=== PATIENT | female | born 1995 | race Hispanic/Latino ===

== ENCOUNTER 2018-01-28 20:11 | Emergency (ER) | payer OTHER ==
[2018-01-28 20:12] VITALS: BMI 20.4
[2018-01-28 20:28] VITALS: O2SAT 100
[2018-01-28] MEDS ORDERED: Iohexol 240 (50 ml) PO STA (21:01)
[2018-01-28] MEDS ORDERED: Lactated Ringer's 1,000 ML IV STA (21:02)
[2018-01-28] MEDS ORDERED: Dextrose 5%/Lactated Ringer's 1,000 ML IV SCH (21:15)
[2018-01-28] MEDS ORDERED: Iohexol 240 (50 ml) ONE (21:47)
[2018-01-28 21:49] LABS: BASO # 0.1 K/uL (0.0-0.2); BASO % 0.8 % (0.0-2.0); EOS # 0.4 K/uL (0.0-0.7); HEMOGLOBIN 13.9 g/dL (12.0-16.0); LYMPH # 2.2 K/uL (1.0-4.3); LYMPH % 24.2 % (20.0-40.0); MEAN CELL VOLUME 92.5 fl (81.0-99.0); MEAN CORPUSCULAR HEMOGLOBIN 31.4 pg (27.0-31.0); MEAN PLATELET VOLUME 7.9 fl (7.2-11.7); MONO % 11.2 % (0.0-10.0); NEUT # 5.5 K/uL (1.8-7.0); NEUT % 59.8 % (50.0-75.0); RBC 4.44 Mil/uL (3.80-5.20); RED CELL DISTRIBUTION WIDTH 12.6 % (11.5-14.5); WHITE BLOOD COUNT 9.2 K/uL (4.8-10.8)
[2018-01-28 21:57] LABS: SQUAMOUS EPITHIAL 16 /hpf (0-5); URINE BACTERIA FEW (<OCC); URINE BILIRUBIN NEGATIVE (NEGATIVE); URINE BLOOD NEGATIVE (NEGATIVE); URINE CLARITY CLOUDY (Clear); URINE COLOR YELLOW (YELLOW); URINE GLUCOSE (UA) NEG (Normal); URINE LEUKOCYTE ESTERASE TRACE Leu/uL (Negative); URINE PROTEIN NEGATIVE (NEGATIVE); URINE UROBILINOGEN 0.2-1.0 mg/dL (0.2-1.0)
[2018-01-28 22:03] LABS: ALB/GLOB RATIO 1.3 (1.0-2.1); ALBUMIN 4.2 g/dL (3.5-5.0); ALT/SGPT 17 U/L (9-52); AST/SGOT 18 U/L (14-36); BLOOD UREA NITROGEN 13 mg/dl (7-17); GFR NON-AFRICAN AMERICAN > 60; LIPASE 287 U/L (23-300)
--- NOTE | 2018-01-28 22:12 | ED PDOC ---
HPI: Abdomen Time Seen by Provider: 01/28/18 20:34 Chief Complaint (Nursing): Abdominal Pain Chief Complaint (Provider): Abdominal Pain History Per: Patient History/Exam Limitations: no limitations Onset/Duration Of Symptoms: Days (x3) Current Symptoms Are (Timing): Still Present Additional Complaint(s): 23 y/o female with no significant PMHx presents to the ED for evaluation of abdominal pain and diarrhea, onset since Friday. Patient reports of having multiple episodes of water diarrhea everyday (approximately 5-10 episodes) that are occasionally blood tinged. Patient report abdominal pain is located in the lower abdomen, specifically the suprapubic region and the left lower quadrant. Patient states pain is associated with decreased appetite, malaise, fatigue, generalized weakness and nausea. Patient is able to tolerate fluids and some food. Denies fever, chills, vomiting, known sickness, recent travel and known antibiotics. PMD: Venkata Viramontes Past Medical History Reviewed: Historical Data, Nursing Documentation, Vital Signs Vital Signs: Last Vital Signs Temp 98.1 F 01/29/18 01:58 Pulse 73 01/29/18 01:58 Resp 17 01/29/18 01:58 BP 113/79 01/29/18 01:58 Pulse Ox 100 01/29/18 01:58 - Medical History PMH: Denies: Chronic Kidney Disease - Surgical History Surgical History: Appendectomy, Hernia Repair (internal hernia) Other surgeries: Abdominal Malrotation Correction () and Abdominal Adhesion Surgery (At 17) - Family History Family History: States: Unknown Family Hx - Home Medications Home Medications: Ambulatory Orders Medication Instructions Recorded Medroxyprogesterone Acetate 150 mg IM QWK 07/29/16 [Depo-Provera] Atropine/Diphenoxylate [Lonox 2 tab PO QID PRN #30 tab 01/29/18 0.025 MG-2.5 MG] Ciprofloxacin [Cipro] 1 tab PO BID #20 tab 01/29/18 Dicyclomine [Bentyl] 20 mg PO QID PRN #20 tab 01/29/18 metroNIDAZOLE [Flagyl] 500 mg PO TID #30 tab 01/29/18 - Allergies Allergies/Adverse Reactions: Allergies Allergy/AdvReac Type Severity Reaction Status Date / Time No Known Allergies Allergy Verified 01/28/18 20:25 Review of Systems ROS Statement: Except As Marked, All Systems Reviewed And Found Negative (as per HPI) Constitutional: Positive for: Weakness, Malaise, Other (Fatigue). Negative for : Fever, Chills Gastrointestinal: Positive for: Nausea, Abdominal Pain, Diarrhea, Hematochezia ( occasional), Other (decreased appetite). Negative for: Vomiting Physical Exam - Reviewed Nursing Documentation Reviewed: Yes Vital Signs Reviewed: Yes - Physical Exam Appears: Positive for: No Acute Distress (tired) Head Exam: Positive for: ATRAUMATIC, NORMOCEPHALIC Skin: Positive for: Warm, Dry Eye Exam: Positive for: EOMI, PERRL ENT: Positive for: Other (Tachy Mucous Membrane) Cardiovascular/Chest: Positive for: Other (bigeminy rate). Negative for: Edema , Murmur Respiratory: Positive for: Normal Breath Sounds. Negative for: Rales, Wheezing , Respiratory Distress Gastrointestinal/Abdominal: Positive for: Bowel Sounds (Hyperactive), Soft, Tenderness (tend to palp at the suprapubic and the LLQ. ). Negative for: Mass, Guarding, Rebound Back: Positive for: Normal Inspection. Negative for: L CVA Tenderness, R CVA Tenderness Extremity: Positive for: Normal ROM. Negative for: Deformity Lymphatic: Negative for: Adenopathy Neurologic/Psych: Positive for: Alert. Negative for: Motor/Sensory Deficits - Laboratory Results Result Diagrams: 01/28/18 21:39 01/28/18 21:48 - ECG ECG: Positive for: Interpreted By Me ECG Rhythm: Positive for: Sinus Rhythm (with PVCs in bigeminy pattern) O2 Sat by Pulse Oximetry: 100 (RA) Pulse Ox Interpretation: Normal Medical Decision Making Medical Decision Making: Time: 2057 Impression: Abdominal Pain and Diarrhea Differentials include but not limited to infectious diarrhea, colitis, diverticulitis, partial bowel obstruction and dehydration Plan: -- CT Abd/Pelvis PO & IV Contrast Time: 2120 Plan: -- EKG -- ED Urine Dipstick -- ED Urine -- Bentyl 20 mg PO -- Dextrose 5%/Lactated Ringer's 1000 ml IV 100 mls/hr -- Lactated Ringer's IV 1000 mls/hr -- Iohexol 50 ml PO -- Toradol 15 mg IVP -- Zofran Inj 4 mg IVP -- Ova and Parasite -- Stool Culture -- Urine Culture -- Urinalysis Time: 8 CT Abdomen/Pelvis FINDINGS: Tubes, catheters and devices: An intrauterine device is present. Lower thorax: No acute findings. ABDOMEN: Liver: Normal. No mass. Gallbladder and bile ducts: Normal. No calcified stones. No ductal dilation. Pancreas: Normal. No ductal dilation. Spleen: Normal. No splenomegaly. Adrenals: Normal. No mass. Kidneys and ureters: Normal. No hydronephrosis. Stomach and bowel: Normal. No obstruction. No mucosal thickening. Appendix: No appendix is specifically identified. There is no evidence of fluid collections or inflammatory stranding in the right lower quadrant. PELVIS: Bladder: Unremarkable as visualized. Reproductive: Unremarkable as visualized. ABDOMEN and PELVIS: Intraperitoneal space: Normal. No free air. No significant fluid collection. Bones/joints: No acute fracture. No dislocation. Soft tissues: Unremarkable. Vasculature: Normal. No abdominal aortic aneurysm. Lymph nodes: Normal. No enlarged lymph nodes. IMPRESSION: No evidence of an acute intra-abdominal or pelvic abnormality. DW pt findings. Pt stable at this time. Advised follow up with PMD for this acute infectious diarrhea, but also for referral to cardiology for further evaluation of bigeminal PVCs. She has no chest pain or shortness of breath, but also denies any history of previous cardiac issue. Scribe Attestation: Documented by Conrad Delatorre acting as a scribe for Denise Alvarez MD. Provider Scribe Attestation: All medical record entries made by the Scribe were at my direction and personally dictated by me. I have reviewed the chart and agree that the record accurately reflects my personal performance of the history, physical exam, medical decision making, and the department course for this patient. I have also personally directed, reviewed, and agree with the discharge instructions and disposition. Disposition - Clinical Impression Clinical Impression: Diarrhea, Asymptomatic PVCs - Disposition [facility]errals: [facility] [Outside] Venkata Viramontes MD [Family Provider] - Disposition: Routine/Home Disposition Time: 01:00 Condition: STABLE Additional Instructions: FOLLOW UP WITH YOUR DOCTOR OR [facility] IN 2 DAYS FOR REEVALUATION Prescriptions: Atropine/Diphenoxylate [Lonox 0.025 MG-2.5 MG] 2 tab PO QID PRN #30 tab PRN Reason: Diarrhea Ciprofloxacin [Cipro] 1 tab PO BID #20 tab Dicyclomine [Bentyl] 20 mg PO QID PRN #20 tab PRN Reason: abdominal pain metroNIDAZOLE [Flagyl] 500 mg PO TID #30 tab Instructions: Diarrhea and Traveler's Diarrhea, Adult (DC) Forms: [employer] (Togolese)
[2018-01-28] MEDS ORDERED: Iohexol 300 100 ML IJ ONE (22:53)
[2018-01-28] MEDS ORDERED: Sodium Chloride 0.9% 50 ML IV ONE (22:54)
[2018-01-29 01:59] VITALS: BP 113/79; PULSE 73; RESP 17; TEMP 98.1
--- NOTE | 2018-01-29 07:53 | CARD ---
APPROVED REPORT Date of service: 01/28/2018 EKG Measurement Heart [id number] <Conclusion> Sinus rhythm with short NC with frequent premature ventricular complexes in a pattern of bigeminy Otherwise normal ECG
--- NOTE | 2018-01-29 12:24 | CT ---
Date of service: 01/28/2018 PROCEDURE: CT Abdomen and Pelvis with contrast HISTORY: ABD PAIN DIARRHEA H/O ABD SURGERY Negative test (concurrent with this examination). COMPARISON: 05/15/2016. TECHNIQUE: Contrast dose: 85 cc Omnipaque 300. Radiation dose: Total exam DLP = 256.33 mGy-cm. This CT exam was performed using one or more of the following dose reduction techniques: Automated exposure control, adjustment of the mA and/or kV according to patient size, and/or use of iterative reconstruction technique. FINDINGS: LOWER THORAX: Unremarkable. LIVER: Unremarkable. No gross lesion or ductal dilatation. GALLBLADDER AND BILE DUCTS: Unremarkable. PANCREAS: Unremarkable. No gross lesion or ductal dilatation. SPLEEN: Unremarkable. ADRENALS: Unremarkable. No mass. KIDNEYS AND URETERS: Unremarkable. No hydronephrosis. No solid mass. VASCULATURE: Unremarkable. No aortic aneurysm. BOWEL: Constipation without fecal impaction or obstruction. APPENDIX: Normal appendix. PERITONEUM: Unremarkable. No free fluid. No free air. LYMPH NODES: Unremarkable. No enlarged lymph nodes. BLADDER: Unremarkable. REPRODUCTIVE: Intrauterine contraceptive device (IUD) identified, the tip may be outside the endometrium in the uterine fundus. Confirmation of this finding would require ultrasound correlation. BONES: No acute fracture. OTHER FINDINGS: None. IMPRESSION: No acute findings related to/accounting for the clinical presentation.. Additional benign and/or incidental findings described above.. Incidental finding(s): The IUD identified common new finding. Portions of this however may reside outside the endometrial canal. Ultrasound correlation may be beneficial if clinically indicated. Concordant results (preliminary interpretation) provided by [employer]. Procedure Completed: 23:20. Preliminary ([employer]) Report: Dictated and Authenticated: 23:58. Final Interpretation: 12:22. January 29, 2018.
== END 2018-01-29 01:30 | disposition home or self-care (01) ==
LOC: H.ER 20:11
DX: R19.7 Diarrhea, unspecified (principal); I49.3 Ventricular premature depolarization
CPT/HCPCS: 74177; 80053; 81003; 81025; 83605; 83690; 85025; 87086; 87491; 87591; 93005; 96374; 96375; 99283; J1885; J2270; J2405; J7120; Q9966; Q9967

== ENCOUNTER 2018-06-11 18:30 | Emergency (ER) | payer OTHER ==
[2018-06-11 18:30] VITALS: BMI 20.4
[2018-06-11 18:35] VITALS: BP 134/89; PULSE 113; RESP 16; TEMP 98.3; O2SAT 98
--- NOTE | 2018-06-11 19:04 | ED PDOC ---
Upper Extremity Pain/Injury Time Seen by Provider: 06/11/18 18:55 Chief Complaint (Nursing): Upper Extremity Problem/Injury Chief Complaint (Provider): Right Wrist Pain History Per: Patient History/Exam Limitations: no limitations Onset/Duration Of Symptoms: Days (x3) Current Symptoms Are (Timing): Still Present Additional Complaint(s): 23 year old female presents to the ED for evaluation of right wrist pain for the past three days. Patient denies any injury, trauma, or other complaints. PMD: Jc Past Medical History Reviewed: Historical Data, Nursing Documentation, Vital Signs Vital Signs: Last Vital Signs Temp 98.3 F 06/11/18 18:32 Pulse 113 H 06/11/18 18:32 Resp 16 06/11/18 18:32 BP 134/89 06/11/18 18:32 Pulse Ox 98 06/11/18 18:32 - Medical History PMH: No Chronic Diseases Denies: Chronic Kidney Disease - Surgical History Surgical History: Appendectomy, Hernia Repair (internal hernia) - Family History Family History: States: Unknown Family Hx - Home Medications Home Medications: Ambulatory Orders Medication Instructions Recorded Medroxyprogesterone Acetate 150 mg IM QWK 07/29/16 [Depo-Provera] Atropine/Diphenoxylate [Lonox 2 tab PO QID PRN #30 tab 01/29/18 0.025 MG-2.5 MG] Ciprofloxacin [Cipro] 1 tab PO BID #20 tab 01/29/18 Dicyclomine [Bentyl] 20 mg PO QID PRN #20 tab 01/29/18 metroNIDAZOLE [Flagyl] 500 mg PO TID #30 tab 01/29/18 - Allergies Allergies/Adverse Reactions: Allergies Allergy/AdvReac Type Severity Reaction Status Date / Time No Known Allergies Allergy Verified 01/28/18 20:25 Review of Systems ROS Statement: Except As Marked, All Systems Reviewed And Found Negative Musculoskeletal: Positive for: Other (right wrist pain) Physical Exam - Reviewed Nursing Documentation Reviewed: Yes Vital Signs Reviewed: Yes - Physical Exam Appears: Positive for: No Acute Distress Cardiovascular/Chest: Positive for: Regular Rate, Rhythm Respiratory: Positive for: Normal Breath Sounds. Negative for: Respiratory Distress Extremity: Positive for: Other (positive De Quervain's sign, positive tinel's sign, and positive phalen's sign of right wrist) Neurologic/Psych: Positive for: Alert, Oriented (x3). Negative for: Motor/Sensory Deficits - ECG O2 Sat by Pulse Oximetry: 98 (RA) Pulse Ox Interpretation: Normal Medical Decision Making Medical Decision Making: Time: 1904 Initial Impression: carpel tunnel of right wrist Initial Plan: --U-preg --Decadron 10mg IM --Toradol 60mg IM Scribe Attestation: Documented by Tori Quevedo, acting as a scribe for Siddhartha Carolina PA-C. Provider Scribe Attestation: All medical record entries made by the Scribe were at my direction and personally dictated by me. I have reviewed the chart and agree that the record accurately reflects my personal performance of the history, physical exam, medical decision making, and the department course for this patient. I have also personally directed, reviewed, and agree with the discharge instructions and disposition. Disposition - Clinical Impression Clinical Impression: Carpal tunnel syndrome of right wrist - Patient ED Disposition Is Patient to be Admitted: No Doctor Will See Patient In The: Office Counseled Patient/Family Regarding: Diagnosis, Need For Followup, Rx Given - Disposition Referrals: Sophia Almazan MD [Non-Staff] - Disposition: Routine/Home Disposition Time: 19:40 Condition: STABLE Instructions: Carpal Tunnel Syndrome, Carpal Tunnel Syndrome (DC), Carpal Tunnel Exercises Forms: [employer] (British)
== END 2018-06-11 19:48 | disposition home or self-care (01) ==
LOC: H.ER 18:30
DX: G56.01 Carpal tunnel syndrome, right upper limb (principal)
CPT/HCPCS: 29125; 81025; 96372; 99283; J1100; J1885